=== PATIENT | male | born 2000 | race Caucasian/White ===

== ENCOUNTER 2019-02-14 08:30 | Emergency (ER) | payer MEDICARE, MEDICAID, SELFPAY ==
[2019-02-14 08:38] VITALS: BP 145/120; PULSE 110; RESP 18; TEMP 36.5; O2SAT 97
--- NOTE | 2019-02-14 08:42 | W.ED.GENAD ---
Discharge Plan Disposition Patient Disposition: HOME Condition: Good Discharge Details Chief Complaint: Sorethroat Clinical Impression: URI (upper respiratory infection) Primary Care Provider: None,None ED Provider: Girish Ann Home Meds and New Rx's Prescriptions: No Action ibuprofen 600 MG tablet 600 mg PO QID PRN (Reason: Pain) Qty: 20 RF: 0 Discharge Instructions Instructions: Upper Respiratory Infection (ED) Additional Instructions: Please consider using [id number] medications that match your symptoms. Just take as recommended on packaging. One recommendation would be Advil Cold and Sinus. Otherwise stay well-hydrated, get plenty of nutrition, and plenty of rest. Return to the emergency department for any new or significant worsening of symptoms such as persistent high fevers, drastic change in your symptoms, or if symptoms are not improving after 1 week of conservative therapy. You may also follow-up with your primary care provider if not improving. Referrals: Primary Care Provider [Outside] Medical Decision Making Patient presenting the emergency department chief complaint of sore throat. Patient states that he has been around his roommate who also has a sore throat and began symptoms before he did. He started having symptoms approximately 3 days ago this started with nasal congestion, sore throat, headache. Patient does state some subjective fevers. He reports mild discomfort with swallowing but denies any inability to swallow. Physical exam is consistent with upper respiratory tract infection and no emergent findings are noted to suggest retropharyngeal abscess, peritonsillar abscess, epiglottitis, meningitis or life-threatening illness. Patient is anxious but otherwise overall nontoxic and appears mildly ill. Discussed with patient [id number] therapies to use for his symptoms, plenty of rest, and staying well-hydrated. Return precautions were discussed. After discussion of diagnosis and plan of care patient has no further needs, questions, or concerns and states clear understanding to return to the emergency department for any worsening symptoms. HPI General Mode of arrival: ambulatory. Date/Time Provider Initiated Documentation: 02/14/19 08:34. Limitations to Documentation: no limitations. Information obtained by: patient and RN notes reviewed. History of Present Illness 18 year old M presents to the emergency department with the chief complaint of Sore throat, described as moderate, with intensity rated at 2. Quality is described as aching, and is localized to the mouth (Sore throat). Patient started experiencing this day(s) (3) and it has been constant. No relieving factors improve symptom(s), Patient did receive the following treatments prior to arrival, NSAID Related Data Home Medications Medication Instructions Recorded Confirmed ibuprofen 600 mg PO QID PRN #20 tablet 07/17/17 02/14/19 Previous Rx's Medication Instructions Recorded ibuprofen 600 mg PO QID PRN #20 tablet 07/17/17 Allergies Allergy/AdvReac Type Severity Reaction Status Date / Time No Known Allergies Allergy Unverified 02/14/19 08:41 General Stated Complaint: Sorethroat EDITH: 4 Review of Systems Constitutional Constitutional: Reports fever(s), Reports headache(s) and Reports malaise ENT Ears, Nose, Mouth, and Throat: Denies change in voice, Denies dysphagia, Denies otalgia, Reports headache(s), Reports nasal congestion, Reports nasal discharge, Reports odynophagia and Reports sore throat Cardiovascular Cardiovascular: Denies chest pain Respiratory Respiratory: Denies chest congestion and Denies cough Gastrointestinal Gastrointestinal: Denies dysphagia and Reports odynophagia Neurologic Neurologic: Reports headache(s) [facility] Social History Smoking/Tobacco Use Status: Former Tobacco Use Do you feel safe in your relationship?: Yes Exam Const General: cooperative, healthy appearing, comfortable, no acute distress and not ill appearing Orientation: alert, awake and oriented x3 HENMT Head: normal to inspection and normocephalic Ears: hearing grossly normal bilaterally, external ears normal, TM's normal bilaterally and mastoids normal General nose exam: external nose normal and nares normal Face and sinus: normal facial exam and sinuses nontender Mouth: oral mucosae normal, lip normal, tongue normal, no audible dysphonia, no drooling and no trismus Throat: uvula midline, abnormal tonsil bilaterally hypertrophy 1+ and no peritonsillar masses Neck Neck: normal visual inspection, full ROM, no lymphadenopathy and no meningeal signs Resp Effort & Inspection: normal respiratory effort, able to speak in complete sentences and no stridor Auscultation: clear to auscultation bilaterally Cardio Rate: regular rate Rhythm: regular rhythm Heart Sounds: S1 normal and S2 normal Skin General skin exam: no rashes or lesions noted Course Vital Signs Vital signs: Vital Signs Temperature 36.5 C 02/14/19 08:38 Pulse 110 H 02/14/19 08:38 Respiratory Rate 18 02/14/19 08:38 Blood Pressure 145/120 H 02/14/19 08:38 Pulse Oximetry 97 02/14/19 08:38 Temperature 36.5 C 02/14/19 08:38 Temperature Source Skin 02/14/19 08:38 Pulse 110 H 02/14/19 08:38 Respiratory Rate 18 02/14/19 08:38 Blood Pressure 145/120 H 02/14/19 08:38 Blood Pressure Position Sitting 02/14/19 08:38 Pulse Oximetry 97 02/14/19 08:38 Oxygen Delivery Method Room Air 02/14/19 08:38 Oxygen Flow Rate 0 02/14/19 08:38 Pain Level 2 02/14/19 08:38
== END 2019-02-14 08:59 | disposition home or self-care (01) ==
PROVIDERS: Emergency Provider Nurse Practitioner Family
DX: J06.9 Acute upper respiratory infection, unspecified (principal)
CPT/HCPCS: 99283; 99282

== ENCOUNTER 2019-02-16 09:15 | Emergency (ER) | payer MEDICARE, MEDICAID, SELFPAY ==
[2019-02-16 09:17] VITALS: BP 146/86; PULSE 94; RESP 16; TEMP 36.8; O2SAT 98
--- NOTE | 2019-02-16 09:25 | W.ED.GENAD ---
Discharge Plan Disposition Patient Disposition: HOME Condition: Stable Discharge Details Chief Complaint: Recheck Clinical Impression: Pharyngitis Primary Care Provider: None,None ED Provider: Pro Christopher Home Meds and New Rx's Prescriptions: New amoxicillin 500 mg tablet 500 mg PO BID Qty: 20 RF: 0 Continued ibuprofen 600 MG tablet 600 mg PO QID PRN (Reason: Pain) Qty: 20 RF: 0 Discharge Instructions Instructions: Pharyngitis (ED) Additional Instructions: If you have difficulty breathing or inability to swallow return to the emergency department for reevaluation Medical Decision Making 18 yo male comes in with continued sore throat for 4 days. Was seen 3 days ago and diagnosed with likely viral uri. he arrives in no distress speaking and swallowing normally. He has no drooling or stridor. Does have posterior pharynx erythema and exudates with midline uvula, no pain over hyoid or restricted silas movements, no findings to suggest rpa, fire prevention bureau captain, epiglotitis. He has a close contact with strep and given exam findings will empirically tx him for this. Will d/c with return precautions Differential Diagnosis Differential Diagnosis: viral vs strep pharyngitis, rpa, fire prevention bureau captain HPI General Mode of arrival: ambulatory. Date/Time Provider Initiated Documentation: 02/16/19 09:17. Limitations to Documentation: no limitations. Information obtained by: patient. History of Present Illness 18 year old M presents to the emergency department with the chief complaint of sore throat, described as moderate, Quality is described as aching, Patient started experiencing this day(s) (4) and it has been constant. No relieving factors improve symptom(s), No exacerbating factors reported . Patient notes no other symptoms.. Patient did receive the following treatments prior to arrival, none Related Data Home Medications Medication Instructions Recorded Confirmed ibuprofen 600 mg PO QID PRN #20 tablet 07/17/17 02/16/19 amoxicillin 500 mg PO BID #20 tab 02/16/19 Previous Rx's Medication Instructions Recorded ibuprofen 600 mg PO QID PRN #20 tablet 07/17/17 amoxicillin 500 mg PO BID #20 tab 02/16/19 Allergies Allergy/AdvReac Type Severity Reaction Status Date / Time No Known Allergies Allergy Unverified 02/16/19 09:21 General Stated Complaint: Recheck EDITH: 5 Review of Systems Review of Systems ROS Unobtainable: All systems reviewed & are unremarkable except as noted in HPI and below Constitutional Constitutional: Denies chills, Denies fever(s) and Denies weakness ENT Ears, Nose, Mouth, and Throat: Denies change in voice Cardiovascular Cardiovascular: Denies chest pain and Denies dyspnea Respiratory Respiratory: Denies cough and Denies dyspnea Gastrointestinal Gastrointestinal: Denies abdominal pain, Denies nausea and Denies vomiting Musculoskeletal Musculoskeletal: Denies joint swelling Neurologic Neurologic: Denies weakness Psychiatric Psychiatric: Denies depression [facility] Social History Smoking/Tobacco Use Status: Former Tobacco Use Alcohol Intake: never Substance use type: does not use Do you feel safe at home: Yes Do you feel safe in your relationship?: Yes Exam Const General: no acute distress Orientation: alert HENMT Head: normal to inspection Ears: external ears normal General nose exam: external nose normal Mouth: moist mucous membranes Eyes General: appearance normal, both eyes and all related structures Neck Neck: normal visual inspection Resp Effort & Inspection: normal respiratory effort and able to speak in complete sentences Cardio Rate: regular rate Skin General skin exam: no rashes or lesions noted Neuro General: alert and oriented x3 Extrem General: normal to inspection Psych Mental Status: mental status grossly normal Course Vital Signs Vital signs: Vital Signs Temperature 36.8 C 02/16/19 09:17 Pulse 94 H 02/16/19 09:17 Respiratory Rate 16 02/16/19 09:17 Blood Pressure 146/86 H 02/16/19 09:17 Pulse Oximetry 98 02/16/19 09:17 Temperature 36.8 C 02/16/19 09:17 Temperature Source Temporal Artery Scan 02/16/19 09:17 Pulse 94 H 02/16/19 09:17 Respiratory Rate 16 02/16/19 09:17 Respiratory Effort 02/16/19 09:17 Blood Pressure 146/86 H 02/16/19 09:17 Pulse Oximetry 98 02/16/19 09:17 Pain Level 5 02/16/19 09:17
== END 2019-02-16 09:32 | disposition home or self-care (01) ==
PROVIDERS: Emergency Provider Emergency Medicine
DX: J02.9 Acute pharyngitis, unspecified (principal)
CPT/HCPCS: 99283

== ENCOUNTER 2019-06-05 10:41 | Emergency (ER) | payer MEDICARE, MEDICAID, SELFPAY ==
[2019-06-05 10:44] VITALS: BP 145/107; PULSE 109; RESP 14; TEMP 36.6; O2SAT 98
--- NOTE | 2019-06-05 10:58 | ED.GENADUL_ITS ---
Discharge Plan Disposition Patient Disposition: HOME Discharge Details Chief Complaint: Orthopedic Clinical Impression: Knee pain Primary Care Provider: None,None ED Provider: Masood Garcia Home Meds and New Rx's Prescriptions: No Action ibuprofen 600 MG tablet 600 mg PO QID PRN (Reason: Pain) Qty: 20 RF: 0 Discharge Instructions Instructions: Knee Pain (ED) Additional Instructions: Please watch for any new or worsening symptoms and return immediately to the ER for any concerns. Please follow up with your primary care provider as soon as possible for reassessment and reevaluation. You may take over the counter medications such as Tylenol and/or Motrin as directed as written on their label for symptomatic control. If symptoms are not improving in the next week or so, outpatient orthopedic follow-up is likely indicated. Outpatient reevaluation, MRI and/or physical therapy may be necessary. Medical Decision Making Patient presents complaining of right knee pain that has occurred over the past several weeks secondary to multiple falls over carpet in his apartment. He is able to bear weight. Denies any numbness, tingling, weakness or any other injuries. Low suspicion for bony abnormality however will obtain x-ray at this time. Patient declines crutches. Recommend resting, icing, elevation, jzny-aod-pyzblon anti-inflammatory medication. Advancing activity as tolerated. And likely outpatient follow-up through orthopedics will be indicated whether he may need reevaluation, MRI and/or physical therapy. Discussed x-ray findings with patient, no additional questions or concerns, comfortable with discharge at this time Medical Records Medical records reviewed: Yes I reviewed the patient's medical records. Imaging Data Radiologic Study: Attestation: I personally reviewed and interpreted this imaging study as follows: Imaging: X-Ray (Right knee, negative) HPI General Date/Time Provider Initiated Documentation: 06/05/19 10:48 . Limitations to Documentation: no limitations . Information obtained by: patient . HPI Narrative: 19-year-old male who presents to the ER for right knee pain. He reports that over the past 2-3 weeks he has fallen multiple times because there is a piece of carpet sticking up in his apartment building. He reports both a direct blow clinic following and a twisting mechanism. Pain is 0 out of 10 when sitting but up to 8 out of 10 with standing or walking. Denies any other injuries. Denies any numbness, tingling, weakness, chest pain, shortness of breath. He began using ice packs yesterday and has used [id number] Motrin. 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 Related Data Allergies Allergy/AdvReac Type Severity Reaction Status Date / Time No Known Allergies Allergy Unverified 06/05/19 11:44 General Stated Complaint: Orthopedic EDITH: 4 Review of Systems Constitutional Constitutional: Denies fever(s) and Denies headache(s) ENT Ears, Nose, Mouth, and Throat: Denies headache(s) and Denies neck pain Cardiovascular Cardiovascular: Denies chest pain and Denies dyspnea Respiratory Respiratory: Denies dyspnea Musculoskeletal Musculoskeletal: Denies neck pain, Denies numbness and Denies tingling Neurologic Neurologic: Denies headache(s), Denies numbness and Denies tingling [facility], [facility]–1983 Social History Smoking/Tobacco Use Status: Former Tobacco Use Alcohol Intake: never Substance use type: does not use Do you feel safe at home: Yes Do you feel safe in your relationship?: Yes Exam Const General: cooperative, healthy appearing, comfortable and no acute distress HENMT Head: normal to inspection, normocephalic and atraumatic Eyes Conjunctivae: conjunctivae normal Neck Neck: normal visual inspection and supple Resp Effort & Inspection: normal respiratory effort and able to speak in complete sentences Cardio Rate: regular rate Rhythm: regular rhythm Skin General skin exam: no rashes or lesions noted Neuro General: alert and awake Gait: antalgic Motor: strength 5/5 throughout Sensory Exam: no sensory deficits noted Extrem Right lower extremity: knee Details: tenderness (Diffuse, worse over the anterior aspect), normal ROM, knee ligament exam normal and ecchymosis (There is a small area of what appears to be old ecchymosis just inferior to the knee); no swelling Course Vital Signs Vital signs: Vital Signs Temperature 36.6 C 06/05/19 10:44 Pulse 109 H 06/05/19 10:44 Respiratory Rate 14 06/05/19 10:44 Blood Pressure 145/107 H 06/05/19 10:44 Pulse Oximetry 98 06/05/19 10:44 Temperature 36.6 C 06/05/19 10:44 Temperature Source Tympanic 06/05/19 10:44 Pulse 109 H 06/05/19 10:44 Respiratory Rate 14 06/05/19 10:44 Respiratory Effort Non-Labored 06/05/19 10:47 Blood Pressure 145/107 H 06/05/19 10:44 Pulse Oximetry 98 06/05/19 10:44 Oxygen Delivery Method Room Air 06/05/19 10:44 Oxygen Flow Rate 0 06/05/19 10:44 Pain Level 8 06/05/19 10:47
--- NOTE | 2019-06-05 11:15 | DI.RAD_ITS ---
EXAM: XR KNEE RT 4V+ CLINICAL HISTORY: multiple falls, pain 3 weeks, worse over anterior TECHNIQUE: COMPARISON: No exams were available for comparison FINDINGS: Four views were obtained. No bony or soft tissue abnormality seen. IMPRESSION:
== END 2019-06-05 11:48 | disposition home or self-care (01) ==
PROVIDERS: Emergency Provider Physician Assistant
DX: M25.561 Pain in right knee (principal); W18.09XA Striking against other object with subsequent fall, initial encounter
CPT/HCPCS: 99283; 73564